=== PATIENT | female | born 1985 | race Two or more races ===

== ENCOUNTER 2020-09-22 18:35 | Emergency (ER) | payer MEDICAID, OTHER ==
[~2020-09-22] VITALS: Ht 152.4 cm; Wt 77.1 kg
[2020-09-22 19:17] LABS: Urine Bacteria FEW /hpf (None Seen); Urine Blood 2+ /uL (Negative); Urine Specific Gravity 1.003 (1.001-1.035); Urine WBC <1 /hpf (0 - 5)
[2020-09-22] MEDS ORDERED: IBUPROFEN 800 MG TAB PO ONE (22:00)
[2020-09-22 22:28] VITALS: BP 132/73
== END 2020-09-22 22:29 | disposition home or self-care (01) ==
LOC: ER 18:35
DX: N39.0 Urinary tract infection, site not specified (principal); Z88.8 Allergy status to other drugs, medicaments and biological substances
CPT/HCPCS: 74176; 81001; 81025